=== PATIENT | male | born 1975 | race Two or more races ===

== ENCOUNTER 2018-11-06 08:32 | Emergency (ER) | payer SELFPAY ==
--- NOTE | 2018-11-06 09:38 | ER Document Report ---
HPI - HPI Time Seen by Provider: 11/06/18 09:05 Pain Level: 4 Context: Patient is a 43-year-old male who presents emergency department with a chief complaint of left ear pain. They say that they have been having left ear pain for the past few weeks. They also state that about a year ago they had the same problem and the pain went away. They have not seen their primary care provider for any of these problems. Also states that they have "swollen glands" on the left side of the neck. Denies any cough. States they have had an on-and-off fever. - ROS Systems Reviewed and Negative: Yes All other systems reviewed and negative - CONSTITUTIONAL Constitutional: REPORTS: Fever, Chills - EENT EENT: REPORTS: Ear Pain. DENIES: Sore Throat, Nasal Drainage-Clear, Nasal Drainage-Purulent, Congestion, Eye problems - NEURO Neurology: DENIES: Headache, Vision blurred - RESPIRATORY Respiratory: DENIES: Trouble Breathing, Coughing - GASTROINTESTINAL Gastrointestinal: DENIES: Abdominal Pain - MUSCULOSKELETAL Musculoskeletal: DENIES: Extremity pain, Back Pain - DERM Skin Color: Normal Skin Problems: None Past Medical History - Social History Smoking Status: Never Smoker Frequency of alcohol use: Rare Drug Abuse: Marijuana Family History: Reviewed & Not Pertinent Patient has suicidal ideation: No Patient has homicidal ideation: No Renal/ Medical History: Denies: Hx Peritoneal Dialysis Vertical Provider Document - CONSTITUTIONAL Agree With Documented VS: Yes Exam Limitations: No Limitations General Appearance: No Apparent Distress - INFECTION CONTROL TRAVEL OUTSIDE OF THE [place] IN LAST 30 DAYS: No - HEENT HEENT: Atraumatic, Normocephalic, PERRLA, Tympanic Membrane Red - Left, Tympanic Membrane Bulging - Left. negative: Pharyngeal Exudate, Pharyngeal Tenderness, Pharyngeal Erythema Notes: Insect parts noted after ear irrigation done - NECK Neck: Normal Inspection, Supple - RESPIRATORY Respiratory: Breath Sounds Normal, No Respiratory Distress - CARDIOVASCULAR Cardiovascular: Regular Rate, Regular Rhythm - MUSCULOSKELETAL/EXTREMETIES Musculoskeletal/Extremeties: FROM - NEURO Level of Consciousness: Awake, Alert, Appropriate Motor/Sensory: No Motor Deficit, No Sensory Deficit - DERM Integumentary: Warm, Dry, No Rash Course - Re-evaluation Re-evalutation: 11/06/18 09:47 Ear irrigation was done by JUAN PABLO Germain. The patient had a bug there ear. She will be started on Ciprodex, as she does have some edema and erythema noted to her left external auditory canal. I was able to then visualize the left tympanic membrane and she did have some purulence behind her tympanic membrane. They will be started on amoxicillin. I do not suspect patient has mastoiditis, as they do not have pain behind at the mastoid process. Verbal discharge instructions were given to the patient. They verbalized understanding. They are stable for discharge. - Vital Signs Vital signs: Temp Pulse Resp BP Pulse Ox 98.2 F 63 16 136/82 H 100 11/06/18 08:38 11/06/18 08:38 11/06/18 08:38 11/06/18 08:38 11/06/18 08:38 Discharge - Discharge Clinical Impression: Ear foreign body Qualifiers: Encounter type: initial encounter Laterality: left Qualified Code(s): T16.2XXA - Foreign body in left ear, initial encounter Otitis externa Qualifiers: Otitis externa type: noninfectious Noninfectious otitis externa type: other type Chronicity: acute Laterality: left Qualified Code(s): H60.592 - Other noninfective acute otitis externa, left ear Otitis media Qualifiers: Otitis media type: mucoid Chronicity: acute Laterality: left Qualified Code(s): H65.112 - Acute and subacute allergic otitis media (mucoid) (sanguinous) (serous), left ear Condition: Stable Disposition: HOME, SELF-CARE Instructions: Otitis Externa ([facility]) Additional Instructions: You were seen today in the emergency department for left ear pain. There was a bug in your ear. You are being provided antibiotic/steroid eardrops. Please place 4 drops to your left ear twice a day for 7 days. You are also being star yan on oral antibiotics. Please continue to take all your antibiotics as prescribed. Please do not use Q-tips to clean your ears. If you have worsening symptoms, you can follow-up with your primary care provider or the emergency department. Prescriptions: Amoxicillin Trihydrate [Amoxil 875 mg Tablet] 1 tab PO BID #20 tablet
[2018-11-06] MEDS ORDERED: CIPROFLOXACIN HCL/DEXAMETH OTIC DROP 7.5 ML AS ONE (09:46)
[2018-11-06 09:59] VITALS: BP 136/81
== END 2018-11-06 10:06 | disposition home or self-care (01) ==
LOC: ER 08:32
DX: T16.2XXA Foreign body in left ear, initial encounter (principal); H60.592 Other noninfective acute otitis externa, left ear; H65.112 Acute and subacute allergic otitis media (mucoid) (sanguinous) (serous), left ear; R50.9 Fever, unspecified; X58.XXXA Exposure to other specified factors, initial encounter
CPT/HCPCS: 99282; J3490

== ENCOUNTER 2020-07-07 16:17 | Emergency (ER) | payer SELFPAY ==
[2020-07-07] MEDS ORDERED: OXYCODONE-ACETAMINOPHEN 5-325 MG TABLET PO ONE (16:44)
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
[2020-07-07 18:38] VITALS: BP 131/72
== END 2020-07-07 18:35 | disposition home or self-care (01) ==
LOC: ER 16:17
DX: S80.212A Abrasion, left knee, initial encounter (principal); S80.211A Abrasion, right knee, initial encounter; M25.562 Pain in left knee; V28.4XXA Motorcycle driver injured in noncollision transport accident in traffic accident, initial encounter
CPT/HCPCS: 99284